=== PATIENT | male | born 1970 | race Caucasian/White ===

== ENCOUNTER 2022-06-09 10:35 | Emergency (ER) | payer MEDICARE, OTHER ==
[~2022-06-09] VITALS: Ht 172.7 cm; Wt 106.5 kg
[2022-06-09] MEDS ORDERED: ASA-BUTALB-CAF1 EACH (10:53)
[2022-06-09] MEDS ORDERED: DOXYCYCLINE HY100 MG PO (10:58)
[2022-06-09] MEDS ORDERED: VENTOLIN HFA18 GM INH (10:58)
[2022-06-09] MEDS ORDERED: HYDROCODON-ACE1 EA11 PO (12:07)
[2022-06-09] MEDS ORDERED: LEVOFLOXACIN750 MG PO (12:07)
== END 2022-06-09 12:40 | disposition home or self-care (01) ==
LOC: ED 10:35
DX: N45.1 Epididymitis (principal); N41.9 Inflammatory disease of prostate, unspecified; K40.90 Unilateral inguinal hernia, without obstruction or gangrene, not specified as recurrent; J45.909 Unspecified asthma, uncomplicated; Z86.73 Personal history of transient ischemic attack (TIA), and cerebral infarction without residual deficits; Z79.899 Other long term (current) drug therapy
CPT/HCPCS: 76870; 81003; 99284-25; A9270